=== PATIENT | female | born 1990 | race Caucasian/White ===

== ENCOUNTER 2016-09-25 22:04 | Emergency (ER) | payer MEDICAID ==
[2014-05-03 15:50] VITALS: BMI 29.1
[~2016-09-25 22:04] MED LIST: HYDROCODONE-APA1 TAB PO; IBUPROFEN600 MG PO; MULTI-DAY VITAM1 TAB PO
== END 2016-09-25 23:35 | disposition home or self-care (01) ==
LOC: D.ER 22:04
DX: S30.861A Insect bite (nonvenomous) of abdominal wall, initial encounter (principal); W57.XXXA Bitten or stung by nonvenomous insect and other nonvenomous arthropods, initial encounter; Y93.89 Activity, other specified; Y92.019 Unspecified place in single-family (private) house as the place of occurrence of the external cause; J45.909 Unspecified asthma, uncomplicated

== ENCOUNTER → 2016-12-03 20:11 | Outpatient (CLI) | payer MEDICAID ==
[2014-05-03 15:50] VITALS: BMI 29.1
[~2016-12-03 20:11] MED LIST changes: +PRENATAL COMPLE1 TAB PO
[2016-12-03 20:47] LABS: APPEARANCE HAZY (CLEAR); COLOR YELLOW (YELLOW); GLUCOSE NEGATIVE (NEGATIVE); KETONE NEGATIVE (NEGATIVE); LEUKOCYTE ESTERASE NEGATIVE (NEGATIVE); NITRITE NEGATIVE (NEGATIVE); PROTEIN NEGATIVE (NEGATIVE); SPECIFIC GRAVITY 1.015 (1.005-1.020); UROBILINOGEN NORMAL (NORMAL)
[2016-12-03 20:48] LABS: BILIRUBIN NEGATIVE (NEGATIVE)
[2016-12-03 23:32] LABS: HEMATOCRIT 35.4 % (36.0-48.0); HEMOGLOBIN 12.2 g/dL (12-16); MCH 30.6 pg (26.0-34.0); MCHC 34.5 g/dL (31.0-37.0); MCV 88.7 fL (80.0-100.0); MEAN PLATELET VOLUME 9.5 fL (7.4-10.4); NEUTROPHILS 68.8 % (40-80); RBC 3.99 10x6/uL (4.00-5.40); RDW 14.3 % (11.5-14.5); WBC 10.8 10x3/uL (4.8-10.8)
[2016-12-03 23:33] LABS: PLATELET COUNT 218 10x3/uL (130-400)
== END | disposition home or self-care (01) ==
LOC: D.LDO 20:11
PROVIDERS: Obstetrics & Gynecology; Specialist
DX: Z34.83 Encounter for supervision of other normal pregnancy, third trimester (principal); Z3A.33 33 weeks gestation of pregnancy

== ENCOUNTER → 2016-12-05 13:04 | Outpatient (CLI) | payer MEDICAID ==
[2014-05-03 15:50] VITALS: BMI 29.1
[2016-12-05 13:32] LABS: APPEARANCE CLEAR (CLEAR); BILIRUBIN NEGATIVE (NEGATIVE); COLOR YELLOW (YELLOW); GLUCOSE NEGATIVE (NEGATIVE); KETONE SMALL mg/dL (NEGATIVE); LEUKOCYTE ESTERASE NEGATIVE (NEGATIVE); NITRITE NEGATIVE (NEGATIVE); PROTEIN NEGATIVE (NEGATIVE); SPECIFIC GRAVITY 1.005 (1.005-1.020); UROBILINOGEN NORMAL (NORMAL)
== END | disposition home or self-care (01) ==
LOC: D.LDO 13:04
PROVIDERS: Obstetrics & Gynecology
DX: O60.03 Preterm labor without delivery, third trimester (principal); Z3A.33 33 weeks gestation of pregnancy; R42 Dizziness and giddiness

== ENCOUNTER 2017-01-02 04:52 | Inpatient (IN) | payer MEDICAID ==
[~2017-01-02 04:52] MED LIST changes: -PRENATAL COMPLE1 TAB PO
[2017-01-02] MEDS ORDERED: PRENATAL COMPLE1 TAB PO (05:11)
[2017-01-02 06:22] LABS: HEMATOCRIT 36.4 % (36.0-48.0); HEMOGLOBIN 12.2 g/dL (12-16); MCH 30.7 pg (26.0-34.0); MCHC 33.5 g/dL (31.0-37.0); MCV 91.5 fL (80.0-100.0); MEAN PLATELET VOLUME 10.4 fL (7.4-10.4); RBC 3.98 10x6/uL (4.00-5.40); RDW 14.8 % (11.5-14.5); WBC 8.8 10x3/uL (4.8-10.8)
[2017-01-02 15:26] LABS: BASOPHILS 0.1 % (0-2); EOSINOPHILS 0.1 % (0-7); HEMATOCRIT 34.8 % (36.0-48.0); HEMOGLOBIN 11.5 g/dL (12-16); IMMATURE GRANULOCYTES 0.5 % (0-5); LYMPHOCYTES 11.4 % (15-50); MCV 90.9 fL (80.0-100.0); MEAN PLATELET VOLUME 10.2 fL (7.4-10.4); MONOCYTES 5.6 % (2-11); NEUTROPHILS 82.3 % (40-80); PLATELET COUNT 193 10x3/uL (130-400); RBC 3.83 10x6/uL (4.00-5.40); RDW 14.7 % (11.5-14.5); WBC 13.5 10x3/uL (4.8-10.8)
[2017-01-03 06:13] LABS: RAPID PLASMA REAGIN Non Reactive (Non Reactive)
[2017-01-03 07:29] LABS: BASOPHILS 0.1 % (0-2); EOSINOPHILS 0.7 % (0-7); HEMATOCRIT 36.7 % (36.0-48.0); HEMOGLOBIN 12.2 g/dL (12-16); IMMATURE GRANULOCYTES 0.4 % (0-5); LYMPHOCYTES 11.9 % (15-50); MCH 30.6 pg (26.0-34.0); MCHC 33.2 g/dL (31.0-37.0); MEAN PLATELET VOLUME 9.8 fL (7.4-10.4); MONOCYTES 5.8 % (2-11); NEUTROPHILS 81.1 % (40-80); PLATELET COUNT 186 10x3/uL (130-400); RBC 3.99 10x6/uL (4.00-5.40); RDW 14.7 % (11.5-14.5); WBC 10.8 10x3/uL (4.8-10.8)
[2017-01-04] MEDS ORDERED: HYDROCODONE-APA1 TAB PO (11:41)
[2017-01-04] MEDS ORDERED: IBUPROFEN600 MG PO (11:42)
== END 2017-01-04 13:50 | disposition home or self-care (01) | DRG 766 ==
LOC: D.LD 04:52 → D.WS 10:00
PROVIDERS: ADMIT Obstetrics & Gynecology
PROC: 10D00Z1 Extraction of Products of Conception, Low, Open Approach (ICD-10-PCS; principal; 2017-01-02)
PROC: 0UB70ZZ Excision of Bilateral Fallopian Tubes, Open Approach (ICD-10-PCS; 2017-01-02)
DX: O34.219 Maternal care for unspecified type scar from previous cesarean delivery (principal); Z3A.37 37 weeks gestation of pregnancy; Z37.0 Single live birth; O90.0 Disruption of cesarean delivery wound; N32.89 Other specified disorders of bladder; N73.6 Female pelvic peritoneal adhesions (postinfective); O99.89 Other specified diseases and conditions complicating pregnancy, childbirth and the puerperium; Z30.2 Encounter for sterilization; Z30.09 Encounter for other general counseling and advice on contraception

== ENCOUNTER 2017-01-07 22:26 | Emergency (ER) | payer MEDICAID ==
[2017-01-02 05:12] VITALS: BMI 30.7
[~2017-01-07 22:26] MED LIST changes: +PRENATAL COMPLE1 TAB PO
== END 2017-01-07 23:11 | disposition home or self-care (01) ==
LOC: D.ER 22:26
DX: L76.82 Other postprocedural complications of skin and subcutaneous tissue (principal); J45.909 Unspecified asthma, uncomplicated

== ENCOUNTER 2017-04-08 12:36 | Emergency (ER) | payer MEDICAID ==
[2017-01-02 05:12] VITALS: BMI 30.7
[2017-04-08 13:12] LABS: BASOPHILS 0.4 % (0-2); EOSINOPHILS 2.7 % (0-7); HEMATOCRIT 37.8 % (36.0-48.0); IMMATURE GRANULOCYTES 0.3 % (0-5); MCH 30.9 pg (26.0-34.0); MCHC 34.4 g/dL (31.0-37.0); MCV 89.8 fL (80.0-100.0); MEAN PLATELET VOLUME 9.2 fL (7.4-10.4); MONOCYTES 6.2 % (2-11); NEUTROPHILS 55.4 % (40-80); RBC 4.21 10x6/uL (4.00-5.40); RDW 13.1 % (11.5-14.5); WBC 6.9 10x3/uL (4.8-10.8)
[2017-04-08 13:21] LABS: PLATELET COUNT 267 10x3/uL (130-400)
[2017-04-08 13:35] LABS: ALBUMIN 3.7 g/dL (3.4-5.0); ALKALINE PHOSPHATASE 135 U/L (46-116); ALT (SGPT) 26 U/L (10-68); BILIRUBIN - TOTAL 0.68 mg/dL (0.2-1.3); CALC OSMOLALITY 278 mosm/kg (275-300); CALCIUM 8.5 mg/dL (8.5-10.1); CARBON DIOXIDE 27.3 mmol/L (21.0-32.0); CHLORIDE - SERUM 106 mmol/L (98-107); CREATININE - SERUM 0.5 mg/dL (0.6-1.3); GLUCOSE 88 mg/dL (74-106); POTASSIUM - SERUM 3.9 mmol/L (3.5-5.1); PROTEIN - SERUM 7.3 g/dL (6.4-8.2); SODIUM 141 mmol/L (136-145); UREA NITROGEN 10 mg/dL (7-18); eGFR NON AFRICAN AMERICAN > 90 mL/min (90-120)
[2017-04-08 13:40] LABS: HCG - QUANTITATIVE (MATERNAL) 0 mIU/mL
== END 2017-04-08 14:19 | disposition home or self-care (01) ==
LOC: D.ER 12:36
PROVIDERS: Emergency Medicine
DX: S30.811A Abrasion of abdominal wall, initial encounter (principal); X58.XXXA Exposure to other specified factors, initial encounter; Y93.89 Activity, other specified; Y92.89 Other specified places as the place of occurrence of the external cause; R10.9 Unspecified abdominal pain

== ENCOUNTER 2017-04-25 23:08 | Emergency (ER) | payer MEDICAID ==
[2017-01-02 05:12] VITALS: BMI 30.7
== END 2017-04-26 00:37 | disposition home or self-care (01) ==
LOC: D.ER 23:08
DX: S30.0XXA Contusion of lower back and pelvis, initial encounter (principal); W10.9XXA Fall (on) (from) unspecified stairs and steps, initial encounter; Y93.89 Activity, other specified; Y92.89 Other specified places as the place of occurrence of the external cause

== ENCOUNTER 2017-12-22 12:37 | Emergency (ER) | payer MEDICAID ==
[2017-01-02 05:12] VITALS: BMI 30.7
== END 2017-12-22 15:05 | disposition home or self-care (01) ==
LOC: D.ER 12:37
DX: K04.7 Periapical abscess without sinus (principal); K08.89 Other specified disorders of teeth and supporting structures

== ENCOUNTER 2018-04-06 22:28 | Emergency (ER) | payer MEDICAID ==
[~2018-04-06] VITALS: Ht 149.9 cm; Wt 59.9 kg
[2018-04-06 22:30] VITALS: Ht 149.9 cm; Wt 59.9 kg
[2018-04-07 00:37] VITALS: BP 128/78
== END 2018-04-07 00:38 | disposition home or self-care (01) ==
LOC: D.ER 22:28
DX: S20.219A Contusion of unspecified front wall of thorax, initial encounter (principal); X58.XXXA Exposure to other specified factors, initial encounter; Y93.89 Activity, other specified; Y92.89 Other specified places as the place of occurrence of the external cause

== ENCOUNTER 2018-05-07 14:35 | Emergency (ER) | payer MEDICAID ==
[~2018-05-07] VITALS: Ht 149.9 cm; Wt 63.6 kg
[2018-05-07 14:39] VITALS: Ht 149.9 cm; Wt 63.6 kg
[2018-05-07 15:19] LABS: BASOPHILS 0.2 % (0-2); EOSINOPHILS 0.7 % (0-7); HEMATOCRIT 37.2 % (36.0-48.0); HEMOGLOBIN 12.6 g/dL (12-16); IMMATURE GRANULOCYTES 0.1 % (0-5); LYMPHOCYTES 23.7 % (15-50); MCH 29.3 pg (26.0-34.0); MCHC 33.9 g/dL (31.0-37.0); MCV 86.5 fL (80.0-100.0); MEAN PLATELET VOLUME 9.1 fL (7.4-10.4); MONOCYTES 5.7 % (2-11); NEUTROPHILS 69.6 % (40-80); PLATELET COUNT 252 10x3/uL (130-400); RDW 13.4 % (11.5-14.5); WBC 8.2 10x3/uL (4.8-10.8)
[2018-05-07 15:32] LABS: UDS - AMPHET NEGATIVE QUAL (NEGATIVE); UDS - BARB NEGATIVE QUAL (NEGATIVE); UDS - BENZO NEGATIVE QUAL (NEGATIVE); UDS - COCAINE NEGATIVE QUAL (NEGATIVE); UDS - OPIATE NEGATIVE QUAL (NEGATIVE); UDS - PCP NEGATIVE QUAL (NEGATIVE); UDS - THC NEGATIVE QUAL (NEGATIVE)
[2018-05-07 15:35] LABS: ALBUMIN 3.9 g/dL (3.4-5.0); ALKALINE PHOSPHATASE 99 U/L (46-116); ALT (SGPT) 18 U/L (10-68); BILIRUBIN - TOTAL 0.25 mg/dL (0.2-1.3); CALC OSMOLALITY 275 mosm/kg (275-300); CALCIUM 8.2 mg/dL (8.5-10.1); CHLORIDE - SERUM 104 mmol/L (98-107); CREATININE - SERUM 0.7 mg/dL (0.6-1.3); GLUCOSE 102 mg/dL (74-106); POTASSIUM - SERUM 3.6 mmol/L (3.5-5.1); PROTEIN - SERUM 7.8 g/dL (6.4-8.2); SODIUM 138 mmol/L (136-145); UREA NITROGEN 12 mg/dL (7-18); eGFR NON AFRICAN AMERICAN > 90 mL/min (90-120)
[2018-05-07 15:42] LABS: APPEARANCE CLEAR (CLEAR); BILIRUBIN NEGATIVE (NEGATIVE); COLOR YELLOW (YELLOW); GLUCOSE NEGATIVE (NEGATIVE); KETONE NEGATIVE (NEGATIVE); NITRITE NEGATIVE (NEGATIVE); PROTEIN NEGATIVE (NEGATIVE); UROBILINOGEN NORMAL (NORMAL)
[2018-05-07 15:49] LABS: HCG URINE NEGATIVE (NEGATIVE)
[2018-05-07 16:34] VITALS: BP 108/078
== END 2018-05-07 16:37 | disposition home or self-care (01) ==
LOC: D.ER 14:35
PROVIDERS: Family Medicine
DX: F41.9 Anxiety disorder, unspecified (principal); F32.9 Major depressive disorder, single episode, unspecified